=== PATIENT | female | born 1990 | race American Indian/Alaskan Native ===

== ENCOUNTER 2016-07-19 15:41 | Emergency (ER) | payer MEDICAID ==
--- NOTE | 2016-07-19 19:22 | Emergency Department Report ---
ED Female HPI - General Chief complaint: Urogenital-Female Stated complaint: BACK/STOMACH PAINS/DISCHARGE Time Seen by Provider: 07/19/16 19:15 Source: patient Mode of arrival: Ambulatory Limitations: Language Barrier - History of Present Illness MD Complaint: dysuria -: days(s) Radiation: suprapubic, other (low back) Severity scale (0 -10): 3 Quality: cramping, burning Worsens with: urination Associated Symptoms: denies other symptoms. denies: vaginal discharge, vaginal bleeding, abdominal pain, nausea/vomiting, fever/chills, headaches - Related Data Home Medications Medication Instructions Recorded Confirmed Last Taken Albuterol Sulfate [Albuterol 0.63%] 0.63 mg IH TID PRN 05/08/13 05/08/13 Unknown Previous Rx's Medication Instructions Recorded Last Taken Type Phenazopyridine [Pyridium] 200 mg PO PC #6 tablet 05/09/13 Unknown Rx Sulfamethoxazole/Trimethoprim 1 each PO BID #20 tablet 05/09/13 Unknown Rx [Bactrim DS] Albuterol Sulfate [Ventolin HFA] 2 puff IH Q4H PRN #2 hfa.aer.ad 10/17/14 Unknown Rx Doxycycline [Vibramycin CAP] 100 mg PO BID #20 capsule 10/17/14 Unknown Rx Fluticasone Propionate [Flonase] 2 sprays NS QDAY #1 bottle 10/17/14 Unknown Rx Loratadine [Claritin] 10 mg PO DAILY #30 tablet 10/17/14 Unknown Rx predniSONE [Deltasone] 40 mg PO QDAY #10 tab 10/17/14 Unknown Rx Vit-Fe Fumar-FA [ 1 tab PO QDAY #30 tablet 04/18/15 Unknown Rx Vitamin] metroNIDAZOLE 0.75% [Metrogel 1 applicatio TP BID #1 tube 04/18/15 Unknown Rx 0.75% TOPICAL] Ondansetron [Zofran Odt] 4 mg PO Q8HR #10 tab.rapdis 05/10/15 Unknown Rx metroNIDAZOLE 0.75% [Metrogel 1 applicatio TP BID #1 tube 05/10/15 Unknown Rx 0.75% TOPICAL] Albuterol Sulfate [Ventolin HFA] 2 puff IH Q4H PRN #1 hfa.aer.ad 05/23/15 Unknown Rx Azithromycin [Zithromax Z-LEORA] 250 mg PO DAILY #6 tab 05/23/15 Unknown Rx Promethazine Dm [Phenergan Dm 5 ml PO Q6H PRN #100 ml 05/23/15 Unknown Rx 6.25/15 mg 5 ml] ALBUTEROL Inhaler [ProAir HFA 2 puff IH QID PRN #1 inhalation 07/19/16 Unknown Rx Inhaler] Albuterol Sulfate [Ventolin HFA] 2 puff IH Q4H PRN #1 hfa.aer.ad 07/19/16 Unknown Rx Fluconazole [Diflucan TAB] 150 mg PO ONCE #1 tablet 07/19/16 Unknown Rx Sulfamethoxazole/Trimethoprim 1 each PO BID #10 tablet 07/19/16 Unknown Rx [Bactrim DS TAB] Allergies Allergy/AdvReac Type Severity Reaction Status Date / Time No Known Allergies Allergy Verified 10/17/14 08:26 ED Review of Systems ROS: Stated complaint: BACK/STOMACH PAINS/DISCHARGE Other details as noted in HPI Constitutional: denies: chills, fever Eyes: denies: eye pain, eye discharge, vision change ENT: denies: ear pain, throat pain Respiratory: denies: cough, shortness of breath, wheezing Cardiovascular: denies: chest pain, palpitations Endocrine: no symptoms reported Gastrointestinal: denies: abdominal pain, nausea, diarrhea Genitourinary: urgency, dysuria, frequency. denies: hematuria, discharge Musculoskeletal: denies: back pain, joint swelling, arthralgia Skin: rash, other (right inguinal lymph node). denies: lesions Neurological: denies: headache, weakness, paresthesias Psychiatric: denies: anxiety, depression Hematological/Lymphatic: denies: easy bleeding, easy bruising ED Past Medical Hx - Past Medical History Previous Medical History?: Yes Hx Headaches / Migraines: Yes Hx Asthma: Yes - Surgical History Past Surgical History?: No - Social History Smoking Status: Current Every Day Smoker Substance Use Type: None - Medications Home Medications: Home Medications Medication Instructions Recorded Confirmed Last Taken Type Albuterol Sulfate [Albuterol 0.63%] 0.63 mg IH TID PRN 05/08/13 05/08/13 Unknown History Phenazopyridine [Pyridium] 200 mg PO PC #6 tablet 05/09/13 Unknown Rx Sulfamethoxazole/Trimethoprim 1 each PO BID #20 tablet 05/09/13 Unknown Rx [Bactrim DS] Albuterol Sulfate [Ventolin HFA] 2 puff IH Q4H PRN #2 hfa.aer.ad 10/17/14 Unknown Rx Doxycycline [Vibramycin CAP] 100 mg PO BID #20 capsule 10/17/14 Unknown Rx Fluticasone Propionate [Flonase] 2 sprays NS QDAY #1 bottle 10/17/14 Unknown Rx Loratadine [Claritin] 10 mg PO DAILY #30 tablet 10/17/14 Unknown Rx predniSONE [Deltasone] 40 mg PO QDAY #10 tab 10/17/14 Unknown Rx Vit-Fe Fumar-FA [ 1 tab PO QDAY #30 tablet 04/18/15 Unknown Rx Vitamin] metroNIDAZOLE 0.75% [Metrogel 1 applicatio TP BID #1 tube 04/18/15 Unknown Rx 0.75% TOPICAL] Ondansetron [Zofran Odt] 4 mg PO Q8HR #10 tab.rapdis 05/10/15 Unknown Rx metroNIDAZOLE 0.75% [Metrogel 1 applicatio TP BID #1 tube 05/10/15 Unknown Rx 0.75% TOPICAL] Albuterol Sulfate [Ventolin HFA] 2 puff IH Q4H PRN #1 hfa.aer.ad 05/23/15 Unknown Rx Azithromycin [Zithromax Z-LEORA] 250 mg PO DAILY #6 tab 05/23/15 Unknown Rx Promethazine Dm [Phenergan Dm 5 ml PO Q6H PRN #100 ml 05/23/15 Unknown Rx 6.25/15 mg 5 ml] ALBUTEROL Inhaler [ProAir HFA 2 puff IH QID PRN #1 inhalation 07/19/16 Unknown Rx Inhaler] Albuterol Sulfate [Ventolin HFA] 2 puff IH Q4H PRN #1 hfa.aer.ad 07/19/16 Unknown Rx Fluconazole [Diflucan TAB] 150 mg PO ONCE #1 tablet 07/19/16 Unknown Rx Sulfamethoxazole/Trimethoprim 1 each PO BID #10 tablet 07/19/16 Unknown Rx [Bactrim DS TAB] ED Physical Exam - General Limitations: Language Barrier General appearance: alert, in no apparent distress - Head Head exam: Present: atraumatic, normocephalic - Eye Eye exam: Present: normal appearance - ENT ENT exam: Present: mucous membranes moist - Neck Neck exam: Present: normal inspection - Respiratory Respiratory exam: Present: normal lung sounds bilaterally. Absent: respiratory distress - Cardiovascular Cardiovascular Exam: Present: regular rate. Absent: systolic murmur, diastolic murmur, rubs, gallop - GI/Abdominal GI/Abdominal exam: Present: soft, tenderness (right inguinal adenopathy due to shaving and folliculitis.), normal bowel sounds. Absent: distended - Extremities Exam Extremities exam: Present: normal inspection - Back Exam Back exam: Present: normal inspection - Neurological Exam Neurological exam: Present: alert, oriented X3 - Psychiatric Psychiatric exam: Present: normal affect, normal mood - Skin Skin exam: Present: warm, dry, intact, normal color, other (general folliculitis , no lymphangitis no cellulitis no crepitus.). Absent: rash ED Course Vital Signs 07/19/16 16:21 Temperature 98.1 F Pulse Rate 71 Respiratory 16 Rate Blood Pressure 111/48 O2 Sat by Pulse 100 Oximetry Critical care attestation.: If time is entered above; I have spent that time in minutes in the direct care of this critically ill patient, excluding procedure time. ED Disposition Clinical Impression: UTI (urinary tract infection) Disposition: DISCHARGED TO HOME OR SELFCARE Is pt being admited?: No Condition: Stable Instructions: Urinary Tract Infection in Women (ED) Prescriptions: ALBUTEROL Inhaler [ProAir HFA Inhaler] 2 puff IH QID PRN #1 inhalation PRN Reason: Shortness Of Breath Albuterol Sulfate [Ventolin HFA] 2 puff IH Q4H PRN #1 hfa.aer.ad PRN Reason: Shortness Of Breath Fluconazole [Diflucan TAB] 150 mg PO ONCE #1 tablet Sulfamethoxazole/Trimethoprim [Bactrim DS TAB] 1 each PO BID #10 tablet Referrals: PRIMARY CARE,MD [Primary Care Provider] - 3-5 Days
[2016-07-19 19:52] LABS: Bilirubin,Urine NEG (Negative); Blood,Urine NEG (Negative); Ketones,Urine TR mg/dL (Negative); Leukocyte Esterase,Urine NEG (Negative); Mucus,Urine 3+ /HPF; Nitrite,Urine NEG (Negative); Protein,Urine <15 mg/dL mg/dL (Negative); Urobilinogen,Urine < 2.0 mg/dL (<2.0)
[2016-07-19 20:24] VITALS: BP 118/62
== END 2016-07-19 20:20 | disposition home or self-care (01) ==
LOC: ED 15:41
DX: N39.0 Urinary tract infection, site not specified (principal); G43.909 Migraine, unspecified, not intractable, without status migrainosus; J45.909 Unspecified asthma, uncomplicated; F17.200 Nicotine dependence, unspecified, uncomplicated
CPT/HCPCS: 81001; 81025; 99283

== ENCOUNTER 2016-10-02 14:30 | Emergency (ER) | payer MEDICAID ==
[2016-10-02 15:30] VITALS: BP 107/67
[2016-10-02] MEDS: MOTRIN PO ONE (17:30)
[2016-10-02 17:45] LABS: Bilirubin,Urine NEG (Negative); Blood,Urine NEG (Negative); Ketones,Urine NEG (Negative); Leukocyte Esterase,Urine NEG (Negative); Mucus,Urine 3+ /HPF; Nitrite,Urine NEG (Negative); Protein,Urine <15 mg/dL mg/dL (Negative); Urobilinogen,Urine < 2.0 mg/dL (<2.0); WBC,Urine < 1.0 /HPF (0.0-6.0)
--- NOTE | 2016-10-02 20:52 | Emergency Department Report ---
Entered by RONNELL MCKENZIE, acting as scribe for ANGELA CADENA NP. - General Chief Complaint: Upper Respiratory Infection Stated Complaint: MIGRAINE/LBP/NAUSEA/SORE THROAT/FREQ URINATION Time Seen by Provider: 10/02/16 16:29 Source: patient Mode of arrival: Ambulatory Limitations: No Limitations - History of Present Illness Initial Comments: 26 y/o female with PMHx of asthma and migraines, presents to the ED c/o cough beginning 3 days ago. Associated symptoms of nausea, vomiting, sore throat, body aches, and chills, but she denies chest pain, SOB, wheezing, numbness, weakness, and tingling. The patient took OTC mucinex and BC powder with no alleviation of the symptoms. Secondary c/o frontal headache described as frontal and pressure-like, of unknown onset. Patient denies thunderclap headache. Patient describes headache as gradual onset. She states that the current symptoms are consistent with prior migraine headaches. Tertiary c/o urinary urgency and frequency of unknown onset. He denies any hoarseness or changes in voice. Associated symptom of lower back pain. Denies hematauria. Patient states the current symptoms are consistent with prior UTI. MD Complaint: cough, sore throat -: days(s) (3 days) Severity: severe Severity scale (0 -10): 10 Consistency: constant Improves With: nothing (no alleviation with OTC mucinex and BC powder) Worsens With: nothing Associated Symptoms: chills, sore throat, cough, nausea, vomiting, other (body aches). denies: chest pain, shortness of breath, ear pain - Related Data Home Medications Medication Instructions Recorded Confirmed Last Taken Albuterol Sulfate [Albuterol 0.63%] 0.63 mg IH TID PRN 05/08/13 05/08/13 Unknown Previous Rx's Medication Instructions Recorded Last Taken Type Phenazopyridine [Pyridium] 200 mg PO PC #6 tablet 05/09/13 Unknown Rx Sulfamethoxazole/Trimethoprim 1 each PO BID #20 tablet 05/09/13 Unknown Rx [Bactrim DS] Albuterol Sulfate [Ventolin HFA] 2 puff IH Q4H PRN #2 hfa.aer.ad 10/17/14 Unknown Rx Doxycycline [Vibramycin CAP] 100 mg PO BID #20 capsule 10/17/14 Unknown Rx Fluticasone Propionate [Flonase] 2 sprays NS QDAY #1 bottle 10/17/14 Unknown Rx Loratadine [Claritin] 10 mg PO DAILY #30 tablet 10/17/14 Unknown Rx predniSONE [Deltasone] 40 mg PO QDAY #10 tab 10/17/14 Unknown Rx Vit-Fe Fumar-FA [ 1 tab PO QDAY #30 tablet 04/18/15 Unknown Rx Vitamin] metroNIDAZOLE 0.75% [Metrogel 1 applicatio TP BID #1 tube 04/18/15 Unknown Rx 0.75% TOPICAL] Ondansetron [Zofran Odt] 4 mg PO Q8HR #10 tab.rapdis 05/10/15 Unknown Rx metroNIDAZOLE 0.75% [Metrogel 1 applicatio TP BID #1 tube 05/10/15 Unknown Rx 0.75% TOPICAL] Albuterol Sulfate [Ventolin HFA] 2 puff IH Q4H PRN #1 hfa.aer.ad 05/23/15 Unknown Rx Azithromycin [Zithromax Z-LEORA] 250 mg PO DAILY #6 tab 05/23/15 Unknown Rx Promethazine Dm [Phenergan Dm 5 ml PO Q6H PRN #100 ml 05/23/15 Unknown Rx 6.25/15 mg 5 ml] ALBUTEROL Inhaler [ProAir HFA 2 puff IH QID PRN #1 inhalation 07/19/16 Unknown Rx Inhaler] Albuterol Sulfate [Ventolin HFA] 2 puff IH Q4H PRN #1 hfa.aer.ad 07/19/16 Unknown Rx Fluconazole [Diflucan TAB] 150 mg PO ONCE #1 tablet 07/19/16 Unknown Rx Sulfamethoxazole/Trimethoprim 1 each PO BID #10 tablet 07/19/16 Unknown Rx [Bactrim DS TAB] Amoxicillin/K Clav Tab [Augmentin 1 tab PO Q12HR 7 Days 10/02/16 Unknown Rx 875 mg] Allergies Allergy/AdvReac Type Severity Reaction Status Date / Time No Known Allergies Allergy Verified 10/17/14 08:26 ED Review of Systems Comment: All other systems reviewed and negative Constitutional: chills ENT: throat pain. denies: ear pain Respiratory: cough. denies: shortness of breath, wheezing Cardiovascular: denies: chest pain Gastrointestinal: nausea, vomiting Genitourinary: urgency, frequency Musculoskeletal: back pain (lower back pain) Neurological: headache (frontal, consistent with migraine headaches). denies: weakness, numbness, other (tingling) ED Past Medical Hx - Past Medical History Previous Medical History?: Yes Hx Headaches / Migraines: Yes Hx Asthma: Yes - Surgical History Past Surgical History?: No - Social History Smoking Status: Current Every Day Smoker Substance Use Type: None - Medications Home Medications: Home Medications Medication Instructions Recorded Confirmed Last Taken Type Albuterol Sulfate [Albuterol 0.63%] 0.63 mg IH TID PRN 05/08/13 05/08/13 Unknown History Phenazopyridine [Pyridium] 200 mg PO PC #6 tablet 05/09/13 Unknown Rx Sulfamethoxazole/Trimethoprim 1 each PO BID #20 tablet 05/09/13 Unknown Rx [Bactrim DS] Albuterol Sulfate [Ventolin HFA] 2 puff IH Q4H PRN #2 hfa.aer.ad 10/17/14 Unknown Rx Doxycycline [Vibramycin CAP] 100 mg PO BID #20 capsule 10/17/14 Unknown Rx Fluticasone Propionate [Flonase] 2 sprays NS QDAY #1 bottle 10/17/14 Unknown Rx Loratadine [Claritin] 10 mg PO DAILY #30 tablet 10/17/14 Unknown Rx predniSONE [Deltasone] 40 mg PO QDAY #10 tab 10/17/14 Unknown Rx Vit-Fe Fumar-FA [ 1 tab PO QDAY #30 tablet 04/18/15 Unknown Rx Vitamin] metroNIDAZOLE 0.75% [Metrogel 1 applicatio TP BID #1 tube 04/18/15 Unknown Rx 0.75% TOPICAL] Ondansetron [Zofran Odt] 4 mg PO Q8HR #10 tab.rapdis 05/10/15 Unknown Rx metroNIDAZOLE 0.75% [Metrogel 1 applicatio TP BID #1 tube 05/10/15 Unknown Rx 0.75% TOPICAL] Albuterol Sulfate [Ventolin HFA] 2 puff IH Q4H PRN #1 hfa.aer.ad 05/23/15 Unknown Rx Azithromycin [Zithromax Z-LEORA] 250 mg PO DAILY #6 tab 05/23/15 Unknown Rx Promethazine Dm [Phenergan Dm 5 ml PO Q6H PRN #100 ml 05/23/15 Unknown Rx 6.25/15 mg 5 ml] ALBUTEROL Inhaler [ProAir HFA 2 puff IH QID PRN #1 inhalation 07/19/16 Unknown Rx Inhaler] Albuterol Sulfate [Ventolin HFA] 2 puff IH Q4H PRN #1 hfa.aer.ad 07/19/16 Unknown Rx Fluconazole [Diflucan TAB] 150 mg PO ONCE #1 tablet 07/19/16 Unknown Rx Sulfamethoxazole/Trimethoprim 1 each PO BID #10 tablet 07/19/16 Unknown Rx [Bactrim DS TAB] Amoxicillin/K Clav Tab [Augmentin 1 tab PO Q12HR 7 Days 10/02/16 Unknown Rx 875 mg] ED Physical Exam - General Limitations: No Limitations General appearance: alert, in no apparent distress - Head Head exam: Present: atraumatic, normocephalic - Eye Eye exam: Present: normal appearance, EOMI - ENT ENT exam: Present: TM's normal bilaterally, normal external ear exam, other ( Noted is posterior pharynx erythema with 3+ tonsillitis. Uvula midline. Airway is patent) - Neck Neck exam: Present: normal inspection, full ROM. Absent: tenderness, lymphadenopathy - Respiratory Respiratory exam: Present: normal lung sounds bilaterally. Absent: respiratory distress, wheezes, rales, rhonchi, stridor - Cardiovascular Cardiovascular Exam: Present: regular rate, normal rhythm, normal heart sounds. Absent: systolic murmur, diastolic murmur, rubs, gallop - GI/Abdominal GI/Abdominal exam: Present: soft. Absent: distended, tenderness - Extremities Exam Extremities exam: Present: normal inspection, full ROM - Back Exam Back exam: Present: normal inspection, full ROM. Absent: CVA tenderness (R), CVA tenderness (L) - Neurological Exam Neurological exam: Present: alert, oriented X3, CN II-XII intact, normal gait - Psychiatric Psychiatric exam: Present: normal affect, normal mood - Skin Skin exam: Present: warm, dry, intact. Absent: rash ED Course Vital Signs 10/02/16 15:24 Temperature 98.3 F Pulse Rate 83 Respiratory 22 Rate Blood Pressure 107/67 O2 Sat by Pulse 97 Oximetry - Reevaluation(s) Reevaluation #1: 10/02/16 18:13 Patient stated a 1 out of 10 for headache. Patient stated that he subside. ED Medical Decision Making - Medical Decision Making Ed course: This is a 26-year-old female that presents with upper respiratory symptoms 1- I prescribed ibuprofen 600 mg by mouth. 2- UA and test ordered. Negative for UTI/ 3- strep test and flu tests ordered. Negative for both 4- at this time the patient did not seem toxic or ill appearance. No any signs of distress noted. 5- ED Disposition Clinical Impression: Upper respiratory infection Qualifiers: URI type: unspecified URI Qualified Code(s): J06.9 - Acute upper respiratory infection, unspecified Disposition: DISCHARGED TO HOME OR SELFCARE Is pt being admited?: No Does the pt Need Aspirin: No Condition: Stable Instructions: Acute Cough (ED), Upper Respiratory Infection (ED) Additional Instructions: Please follow up with her primary care doctor in 3-5 days. If symptoms worsens report back to emergency room. Take prescription as prescribed. Finish full course of antibiotic. Prescriptions: Amoxicillin/K Clav Tab [Augmentin 875 mg] 1 tab PO Q12HR 7 Days Referrals: PRIMARY CARE, [Primary Care Provider] - 3-5 Days This documentation as recorded by the MAGALY artis GRACE,accurately reflects the service I personally performed and the decisions made by me,ANGELA CADENA NP.
== END 2016-10-02 18:34 | disposition home or self-care (01) ==
LOC: ED 14:30
DX: J06.9 Acute upper respiratory infection, unspecified (principal); G43.909 Migraine, unspecified, not intractable, without status migrainosus; J45.909 Unspecified asthma, uncomplicated; F17.200 Nicotine dependence, unspecified, uncomplicated
CPT/HCPCS: 81001; 81025; 87116; 87400; 87430; 99283

== ENCOUNTER 2019-06-28 18:32 | Emergency (ER) | payer MEDICAID, OTHER ==
--- NOTE | 2019-06-28 21:14 | Emergency Department Report ---
Chief Complaint: Upper Respiratory Infection Stated Complaint: FLU SYM Time Seen by Provider: 06/28/19 20:58 - HPI History of Present Illness: 28-year-old -[place] female presents to the emergency room complaining of migraine headache back ache and cough. Patient reports she's been taken severe cold and cough, Tylenol and using her inhaler. Patient last took medication yesterday. Patient does have a history of asthma. Patient denies any wheezing or shortness of breath. Patient reports that she had sick contact at home. Patient reports these symptoms have been going on for 3 days. - Exam Vital Signs: Vital Signs 06/28/19 19:36 Temperature 98.6 F Pulse Rate 102 H Respiratory 18 Rate Blood Pressure 105/83 O2 Sat by Pulse 96 Oximetry Physical Exam: Patient's alert and oriented 3 no acute distress nontoxic in appearance. Chest clear to auscultation bilaterally no wheezing or rhonchorous Cardiac regular rate and rhythm Neuro ambulating without difficulties. MSE screening note: Focused history and physical exam performed. Due to findings the following was ordered: 28-year-old -[place] female presents to the emergency room complaining of migraine headache back ache and cough. Patient reports she's been taken severe cold and cough, Tylenol and using her inhaler. Patient last took medication yesterday. Patient does have a history of asthma. Patient denies any wheezing or shortness of breath. Patient reports that she had sick contact at home. Patient reports these symptoms have been going on for 3 days. This patient is past time for benefit of Tamiflu as it given within 48 hours.. I discussed the patient she is currently to take ibuprofen or Tylenol for pain management body aches and headache. Also discussed patient to continue with her inhaler and can take [id number] Robitussin and Claritin. Discussed the patient she can follow-up with her primary care provider if her symptoms persist or gets worse. ED Disposition for MSE Clinical Impression: Flu-like symptoms Disposition: Z- MED SCREENING EXAM-LEFT Is pt being admited?: No Does the pt Need Aspirin: No Condition: Stable Instructions: Viral Syndrome (ED) Additional Instructions: Please take Tylenol or ibuprofen for pain. You can take [id number] Robitussin and Claritin for cough. Continue using her inhaler as needed. Follow up with her primary care provider if his symptoms persist or gets worse. Increase her fluid intake.
[2019-06-28 21:33] VITALS: BP 100/67
== END 2019-06-28 21:31 | disposition left against medical advice (07) ==
LOC: ED 18:32
DX: J11.1 Influenza due to unidentified influenza virus with other respiratory manifestations (principal); G43.909 Migraine, unspecified, not intractable, without status migrainosus
CPT/HCPCS: 99282

== ENCOUNTER 2021-07-20 21:07 | Emergency (ER) | payer SELFPAY | END 2021-07-21 00:17 | disposition left against medical advice (07) | LOC: ED 21:07 | DX: S22.39XA Fracture of one rib, unspecified side, initial encounter for closed fracture (principal); Z53.21 Procedure and treatment not carried out due to patient leaving prior to being seen by health care provider; X58.XXXA Exposure to other specified factors, initial encounter; Y93.89 Activity, other specified; Y92.89 Other specified places as the place of occurrence of the external cause; Y99.8 Other external cause status ==